=== PATIENT | female | born 1995 | race Caucasian/White ===

== ENCOUNTER 2022-09-16 12:56 | Emergency (ER) | payer MEDICAID ==
[~2022-09-16] VITALS: Ht 157.5 cm; Wt 56.7 kg
[2022-09-16 13:16] VITALS: BP 133/99
--- NOTE | 2022-09-16 13:31 | NUR ---
PT SEEN WALKING OUT OF ER. PATIENT LEFT WITHOUT BEING SEEN BY DR. RAMOS. NO FURTHER CARE PROVIDED FOR PATIENT.
== END 2022-09-16 13:31 | disposition left against medical advice (07) ==
LOC: MED 12:56
DX: F10.129 Alcohol abuse with intoxication, unspecified (principal); Z53.21 Procedure and treatment not carried out due to patient leaving prior to being seen by health care provider; Y90.9 Presence of alcohol in blood, level not specified
CPT/HCPCS: 99281